=== PATIENT | male | born 1990 | race Caucasian/White ===

== ENCOUNTER 2016-04-16 20:44 | Emergency (ER) | payer BC ==
[2016-04-16] MEDS ORDERED: Ketorolac 60 MG/2 ML SDV IM ONE (21:01)
--- NOTE | 2016-04-16 21:06 | EDM.PDOC ---
ED HPI GENERAL MEDICAL PROBLEM - General Chief Complaint: Headache Stated Complaint: PT DIZZY,BLURRED VISION AND HANDS NUMB Time Seen by Provider: 04/16/16 20:59 - History of Present Illness INITIAL COMMENTS - FREE TEXT/NARRATIVE: HISTORY AND PHYSICAL: History of present illness: The patient's 25-year-old Tera says her headache has been off and on for several weeks he states that he had numbness in his hands bilaterally his face is quite anxious on arrival he denies any trauma denies any fever chills nausea vomiting diarrhea or other concern he has no history of migraines nor significant family history Review of systems: As per history of present illness and below otherwise all systems reviewed and negative. Past medical history: As per history of present illness and as reviewed below otherwise noncontributory. Surgical history: As per history of present illness and as reviewed below otherwise noncontributory. Social history: No reported history of drug or alcohol abuse. Family history: As per history of present illness and as reviewed below otherwise noncontributory. Physical exam: HEENT: Atraumatic, normocephalic, pupils reactive, negative for conjunctival pallor or scleral icterus, mucous membranes moist, throat clear, neck supple, nontender, trachea midline. Lungs: Clear to auscultation, breath sounds equal bilaterally, chest nontender. Heart: S1S2, regular, negative for clicks, rubs, or JVD. Abdomen: Soft, nondistended, nontender. Negative for masses or hepatosplenomegaly. Negative for costovertebral tenderness. Pelvis: Stable nontender. Genitourinary: Deferred. Rectal: Deferred. Extremities: Atraumatic, negative for cords or calf pain. Neurovascular unremarkable. Neuro: Awake, alert, oriented. Cranial nerves II through XII unremarkable. Cerebellum unremarkable. Motor and sensory unremarkable throughout. Exam nonfocal. Diagnostics: CT brain carboxyhemoglobin Therapeutics: Toradol 60 mg IM Impression: #1 cephalgia Definitive disposition and diagnosis as appropriate pending reevaluation and review of above. Headache Pain Score (Numeric/FACES): 10 - Related Data Allergies Allergy/AdvReac Type Severity Reaction Status Date / Time No Known Allergies Allergy Verified 04/16/16 20:50 Home Meds: Home Meds . [No Known Home Meds] 09/01/13 [History] Past Medical History HEENT History: Reports: None Cardiovascular History: Reports: None Respiratory History: Reports: None Other Gastrointestinal History: Mecols Diverticulum Genitourinary History: Reports: None Musculoskeletal History: Reports: None Neurological History: Reports: None Psychiatric History: Reports: None Endocrine/Metabolic History: Reports: None Hematologic History: Reports: None Immunologic History: Reports: None Dermatologic History: Reports: None - Infectious Disease History Infectious Disease History: Reports: None - Past Surgical History Musculoskeletal Surgical History: Reports: Other (see below) Other Musculoskeletal Surgeries/Procedures:: left ankle surgery Social & Family History - Tobacco Use Smoking Status *Q: Never Smoker Years of Tobacco use: 7 Packs/Tins Daily: 1 Used Tobacco, but Quit: No Second Hand Smoke Exposure: No - Caffeine Use Caffeine Use: Reports: Soda - Alcohol Use Days Per Week of Alcohol Use: 1 Number of Drinks Per Day: 12 Total Drinks Per Week: 12 - Recreational Drug Use Recreational Drug Use: No Drug Use in Last 12 Months: Yes Recreational Drug Type: Reports: Marijuana/Hashish Recreational Drug Use Frequency: Daily ED ROS GENERAL - Review of Systems Review Of Systems: ROS reveals no pertinent complaints other than HPI. ED EXAM, GENERAL - Physical Exam Exam: See Below (See dictated) Course - Vital Signs Last Recorded V/S: Last Vital Signs Temp 36.1 C 04/16/16 20:51 Pulse 66 04/16/16 20:51 Resp 16 04/16/16 20:51 BP 137/89 04/16/16 20:51 Pulse Ox 98 04/16/16 20:51 - Orders/Labs/Meds Orders: Active Orders 24 hr Category Date Time Status Head wo Cont [CT] Stat Exams 04/16/16 21:01 Taken Labs: Laboratory Tests 04/16/16 Range/Units 21:10 ABG Carboxyhemoglobin 2.3 (0-15) % Meds: Medications Discontinued Medications Generic Name Dose Route Start Last Admin Trade Name Freq PRN Reason Stop Dose Admin Ketorolac Tromethamine 60 mg 04/16/16 21:01 04/16/16 21:06 Toradol IM 04/16/16 21:02 60 mg ONETIME ONE Administration Ondansetron HCl 4 mg 04/16/16 22:25 04/16/16 22:28 Zofran Odt PO 04/16/16 22:26 4 mg ONETIME ONE Administration Ondansetron HCl Confirm 04/16/16 22:26 Zofran Odt Administered 04/16/16 22:27 Dose 4 mg .ROUTE .STK-MED ONE Departure - Departure Time of Disposition: 22:45 Disposition: Home, Self-Care 01 Condition: good Clinical Impression: Cephalgia Forms: ED Department Discharge Additional Instructions: The following information is given to patients seen in the emergency department who are being discharged to home. This information is to outline your options for follow-up care. We provide all patients seen in our emergency department with a follow-up referral. The need for follow-up, as well as the timing and circumstances, are variable depending upon the specifics of your emergency department visit. If you don't have a primary care physician on staff, we will provide you with a referral. We always advise you to contact your personal physician following an emergency department visit to inform them of the circumstance of the visit and for follow-up with them and/or the need for any referrals to a consulting specialist. The emergency department will also refer you to a specialist when appropriate. This referral assures that you have the opportunity for followup care with a specialist. All of these measure are taken in an effort to provide you with optimal care, which includes your followup. Under all circumstances we always encourage you to contact your private physician who remains a resource for coordinating your care. When calling for followup care, please make the office aware that this follow-up is from your recent emergency room visit. If for any reason you are refused follow-up, please contact the [facility] emergency department at and asked to speak to the emergency department charge nurse. [facility] Specialty Care - Neurology Professional Building [address] [place] [address], [address] [place] [address] Motrin or Tylenol as directed Zofran as prescribed follow up in neurology call to schedule appointment return as needed as discussed - My Orders Last 24 Hours: My Active Orders 04/16/16 21:01 Head wo Cont [CT] Stat - Assessment/Plan Last 24 Hours: My Active Orders 04/16/16 21:01 Head wo Cont [CT] Stat
[2016-04-16] MEDS ORDERED: Ondansetron 4 MG Tab.DIS PO ONE (22:25)
[2016-04-16] MEDS ORDERED: Ondansetron 4 MG Tab.DIS ONE (22:26)
[2016-04-17 00:17] VITALS: BP 130/70
--- NOTE | 2016-04-17 14:58 | CT ---
EXAM DATE: 04/16/16 PATIENT'S AGE: 25 Patient: LAMAR GALLEGOS Facility: [place], [place] Site . Site : 1990 Study: CT Head [id number] 9:30:58 PM Ordering Physician: Alicia Johnson Final Report: HISTORY: Dizziness and headaches x2 weeks. Bilateral upper extremity tingling. TECHNIQUE: Head was scanned in axial plane at 3 mm intervals without IV contrast. Reconstructed bone windows obtained as well as sagittal and coronal reconstructions. COMPARISON: 24 December 2014. FINDINGS: 7 mm mucous retention cyst or polyp is seen within the left sphenoid sinus. Fluid is seen in some of the inferior right mastoid air cells. Left mastoid air cells are well aerated. The calvarium is intact. The ventricles and sulci are normal size, shape and position. No intra-axial mass, edema or midline shift is identified. No extra-axial fluid collections are seen. Marroquin-white differentiation is preserved. IMPRESSION: 1. Mild right mastoid effusion. 2. 7 mm mucous retention cyst or polyp in the sphenoid sinus. 3. No acute intracranial pathology or bleed. Dictated by Chrissy Newman MD @ 04/16/2016 9:42:22 PM Dictated by: Chrissy Newman MD @ 04/16/2016 21:42:59 (Electronic Signature) Report Signed by Proxy and Original Signed Document filed in the Medical Record. [facility]ITAL[facility]ayy
== END 2016-04-16 22:51 | disposition home or self-care (01) ==
LOC: MW.ED 20:44
DX: R51 Headache (principal); Z98.890 Other specified postprocedural states
CPT/HCPCS: 70450; 82375; 96372; 99283; A9270; J1885

== ENCOUNTER 2017-06-12 16:00 | Emergency (ER) | payer BC ==
--- NOTE | 2017-06-12 16:09 | EDM.PDOC ---
ED HPI GENERAL MEDICAL PROBLEM - General Chief Complaint: Lower Extremity Injury/Pain Stated Complaint: PAIN RT ANKLE Time Seen by Provider: 06/12/17 16:09 Source of Information: Reports: Patient History Limitations: Reports: No Limitations - History of Present Illness INITIAL COMMENTS - FREE TEXT/NARRATIVE: HISTORY AND PHYSICAL: History of present illness: Patient is a 26-year-old male who presents to the emergency room today with complaints of right ankle pain. He states he was walking and stepped into a hole resulting in him twisting his right lower extremity. Upon arrival he needs assistance into the emergency department. He is requesting that we cut his cowboy boot off as it is too painful to pull the boot from his foot. Testing his head or any loss of consciousness. Does have some intermittent/mild tingling to the affected extremity. No previous trauma or surgeries to the affected extremity. Review of systems: As per history of present illness and below otherwise all systems reviewed and negative. Past medical history: As per history of present illness and as reviewed below otherwise noncontributory. Surgical history: As per history of present illness and as reviewed below otherwise noncontributory. Social history: No reported history of drug or alcohol abuse. Family history: As per history of present illness and as reviewed below otherwise noncontributory. Physical exam: General: Well-developed and well-nourished 25-year-old male. Alert and oriented. Nontoxic appearing and in no acute distress. HEENT: Atraumatic, normocephalic, pupils equal and reactive bilaterally, negative for conjunctival pallor or scleral icterus, mucous membranes moist, throat clear, neck supple, nontender, trachea midline. No drooling or trismus noted. No meningeal signs Lungs: Clear to auscultation, breath sounds equal bilaterally, chest nontender. Heart: S1S2, regular rate and rhythm without overt murmur Abdomen: Soft, nondistended, nontender. Negative for masses or hepatosplenomegaly. Negative for costovertebral tenderness. Pelvis: Stable nontender. Genitourinary: Deferred. Rectal: Deferred. Skin/Extremity: Mild soft tissue swelling noted to the right lateral malleolus with tenderness to palpation. Strong pedal pulses bilaterally. Capillary refill less than 3 seconds. +CMS. Pain with flexion and extension of the affected extremity, able to perform active ROM. Skin is intact, warm, and dry. No lesions or rashes noted. Neurovascular unremarkable. Neuro: Awake, alert, oriented. Cranial nerves II through XII unremarkable. Cerebellum unremarkable. Motor and sensory unremarkable throughout. Exam nonfocal. Notes: X-ray shows no acute injury or abnormalities. We'll place him in a cam walker boot with crutches. Encouraged him to follow-up with Ortho as discussed. Tramadol, 15, no refill. Part of care measures were reviewed. Diagnostics: Right ankle xray Therapeutics: Heidi Impression: Right ankle injury Plan: 1. Rest, ice, elevate the extremity. Cam walker boot and crutches for the next 2 -3 days. 2. Tylenol and/or ibuprofen as needed for pain management. For moderate to severe pain. This medication may cause drowsiness a do not take it will driving her needing to be functioning outside of the house. 3. Follow-up with the orthopedic provider in the next 1-2 days. Return to the ED as needed and as discussed. Definitive disposition and diagnosis as appropriate pending reevaluation and review of above. Right Ankle Pain Score (Numeric/FACES): 8 - Related Data Allergies Allergy/AdvReac Type Severity Reaction Status Date / Time No Known Allergies Allergy Verified 06/12/17 16:18 Home Meds: Home Meds . [No Known Home Meds] 09/01/13 [History] Past Medical History HEENT History: Reports: None Cardiovascular History: Reports: None Respiratory History: Reports: None Other Gastrointestinal History: Mecols Diverticulum Genitourinary History: Reports: None Musculoskeletal History: Reports: None Neurological History: Reports: None Psychiatric History: Reports: None Endocrine/Metabolic History: Reports: None Hematologic History: Reports: None Immunologic History: Reports: None Dermatologic History: Reports: None - Infectious Disease History Infectious Disease History: Reports: None - Past Surgical History Musculoskeletal Surgical History: Reports: Other (See Below) Social & Family History - Tobacco Use Smoking Status *Q: Never Smoker Years of Tobacco use: 7 Packs/Tins Daily: 1 Used Tobacco, but Quit: No Second Hand Smoke Exposure: No - Caffeine Use Caffeine Use: Reports: Soda - Alcohol Use Days Per Week of Alcohol Use: 1 Number of Drinks Per Day: 12 Total Drinks Per Week: 12 - Recreational Drug Use Recreational Drug Use: No Drug Use in Last 12 Months: Yes Recreational Drug Type: Reports: Marijuana/Hashish Recreational Drug Use Frequency: Daily Review of Systems - Review of Systems Review Of Systems: ROS reveals no pertinent complaints other than HPI. ED EXAM, GENERAL - Physical Exam Exam: See Below (See dictation) Course - Vital Signs Last Recorded V/S: Last Vital Signs Temp 98.2 F 06/12/17 16:14 Pulse 84 06/12/17 16:14 Resp 20 06/12/17 16:14 BP 152/80 H 06/12/17 16:14 Pulse Ox 98 06/12/17 16:14 - Orders/Labs/Meds Orders: Active Orders 24 hr Category Date Time Status Ankle Min 3V Rt [CR] Stat Exams 06/12/17 16:08 Taken DME for Discharge [COMM] Stat Oth 06/12/17 17:08 Ordered Meds: Medications Discontinued Medications Generic Name Dose Route Start Last Admin Trade Name Freq PRN Reason Stop Dose Admin Hydrocodone Bitart/Acetaminophen 1 tab 06/12/17 16:22 06/12/17 16:31 Holmes 325-5 Mg PO 06/12/17 16:23 1 tab ONETIME ONE Administration Departure - Departure Time of Disposition: 17:12 Disposition: Home, Self-Care 01 Clinical Impression: Right ankle injury Qualifiers: Encounter type: initial encounter Qualified Code(s): S99.911A - Unspecified injury of right ankle, initial encounter - Discharge Information Instructions: Ankle Sprain, Awey-oe-Ehdl Referrals: PCP,None [Primary Care Provider] - Forms: ED Department Discharge Additional Instructions: The following information is given to patients seen in the emergency department who are being discharged to home. This information is to outline your options for follow-up care. We provide all patients seen in our emergency department with a follow-up referral. The need for follow-up, as well as the timing and circumstances, are variable depending upon the specifics of your emergency department visit. If you don't have a primary care physician on staff, we will provide you with a referral. We always advise you to contact your personal physician following an emergency department visit to inform them of the circumstance of the visit and for follow-up with them and/or the need for any referrals to a consulting specialist. The emergency department will also refer you to a specialist when appropriate. This referral assures that you have the opportunity for follow-up care with a specialist. All of these measure are taken in an effort to provide you with optimal care, which includes your follow-up. Under all circumstances we always encourage you to contact your private physician who remains a resource for coordinating your care. When calling for follow-up care, please make the office aware that this follow-up is from your recent emergency room visit. If for any reason you are refused follow-up, please contact the [facility] Emergency Department at and asked to speak to the emergency department charge nurse. [facility] Primary Care [address] [place] [id number] 1. Rest, ice, elevate the extremity. Cam walker boot and crutches for the next 2 -3 days. 2. Tylenol and/or ibuprofen as needed for pain management. For moderate to severe pain. This medication may cause drowsiness a do not take it will driving her needing to be functioning outside of the house. 3. Follow-up with the orthopedic provider in the next 1-2 days. Return to the ED as needed and as discussed. - My Orders Last 24 Hours: My Active Orders 06/12/17 16:08 Ankle Min 3V Rt [CR] Stat 06/12/17 17:08 DME for Discharge [COMM] Stat - Assessment/Plan Last 24 Hours: My Active Orders 06/12/17 16:08 Ankle Min 3V Rt [CR] Stat 06/12/17 17:08 DME for Discharge [COMM] Stat
[2017-06-12] MEDS ORDERED: Acetaminophen/HYDROcodone 325-5 MG Tab PO ONE (16:22)
[2017-06-12 19:09] VITALS: BP 122/66
--- NOTE | 2017-06-15 09:33 | CR ---
EXAM DATE: 06/12/17 PATIENT'S AGE: 26 Patient: LAMAR GALLEGOS Facility: [place], [place] Site . Site : 1990 Study: XRay Extremity Right [id number]/[id number] 4:42:13 PM Ordering Physician: Doctor Edwards Final Report: INDICATION: Rolled ankle TECHNIQUE: Ankle radiograph 3 views right COMPARISON: None FINDINGS: Bones: No acute fractures or aggressive bone lesions are identified. 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 Joints: The ankle mortise joint and the visualized hindfoot joints are unremarkable in appearance. No significant ankle effusion is seen. Soft tissue: The Kager fat pad and the Achilles` tendon is normal in appearance. No radiopaque foreign bodies are seen. IMPRESSION: 1. No acute osseous injuries or abnormalities are noted. Dictated by: Justyn Moreland MD @ 06/12/2017 16:47:43 (Electronic Signature) Report Signed by Proxy. RITA
== END 2017-06-12 17:30 | disposition home or self-care (01) ==
LOC: MW.ED 16:00
DX: S99.911A Unspecified injury of right ankle, initial encounter (principal); X50.1XXA Overexertion from prolonged static or awkward postures, initial encounter
CPT/HCPCS: 73610; 99283; A9270